=== PATIENT | female | born 1950 | race Caucasian/White ===

== ENCOUNTER 2019-06-21 09:54 | Inpatient (IN) | payer MEDICARE, SELFPAY ==
[2019-06-21] VITALS (19 sets, daily range): BP systolic 126–167; BP diastolic 60–92; PULSE 69–116; RESP 13–22; TEMP 36.5–37.7; O2SAT 97–100; BMI 32.4; BMI 33.0
--- NOTE | 2019-06-21 10:27 | EKG12_ITS ---
Test Reason : SOB Blood Pressure : / mmHG Vent. Rate : 092 BPM Atrial Rate : 092 BPM P-R Int : 216 ms QRS Dur : 076 ms QT Int : 372 ms P-R-T Axes : 053 -19 035 degrees QTc Int : 460 ms Sinus rhythm with 1st degree A-V block Nonspecific ST abnormality Abnormal ECG Confirmed by LÓPEZ ORELLANA, EVY ([id number]), technical writer and editor FAVIAN BHATTI ([id number]) on 06/23/2019 11:41:54 AM Referred By: Erika Lane Confirmed By:EVY DAWN MD
[2019-06-21 10:50] LABS: Absolute Lymphocyte Count 1.02 X10^3/uL (0.83-4.51); Absolute Neutrophil Count 3.9 X10^3/uL (2.0-7.7); Basophil# 0.02 X10^3/uL; Basophil% 0.4 % (0-1); Eosinophil# 0.08 X10^3/uL; Eosinophils% 1.4 % (0-5); Hemoglobin 12.6 g/dL (12.0-15.0); Lymphocyte # 1.02 X10^3/ul (4.0); Lymphocyte % 18.3 % (19-41); Mean Corp Hgb Conc 32.3 g/dL (32-36); Mean Corpuscular Hgb 29.6 pg (27.0-32.0); Mean Corpuscular Volume 91.5 fL (81-99); Mean Platelet Vol. 10.5 fl (6.2-12.0); Monocyte# 0.52 X10^3/uL; Monocyte% 9.3 % (0-10); NRBC Flagged by Analyzer 0 % (0-5); Neutrophil # 3.92 X10^3/uL (2.7-7.7); Neutrophil % 70.2 % (47-70); Platelet Count 160 K/mm3 (150-450); RBC Distribution Width CV 13.7 % (11.6-14.6); RBC Distribution Width SD 46.3 fl (35.1-43.9); Red Blood Count 4.26 M/mm3 (4.2-5.4); White Blood Count 5.6 K/mm3 (4.4-11.0)
[2019-06-21 11:09] LABS: Anion Gap 8 (5-15); BUN 16 mg/dL (7-18); BUN/Creat Ratio 12.6 RATIO (10-20); Calcium,Total 8.9 mg/dL (8.5-10.1); Chloride 107 mmol/L (98-107); Creatinine, Serum 1.27 mg/dL (0.55-1.02); EST Glomerular Filtration Rate 44 mL/min (>60); Est Glom Filt Rate - Afr Amer 53 mL/min (>60); Estimated Creatinine Clearance 40.08 ml/min; Glucose 114 mg/dL (74-106); Potassium 3.9 mmol/L (3.5-5.1); Sodium Level 138 mmol/L (136-145)
[2019-06-21 11:10] LABS: D-Dimer Quantitative (DVT/PE) 3.91 FEU/ug/m (0.27-0.49)
--- NOTE | 2019-06-21 11:10 | CT_ITS ---
We are attempting to reach an attending provider to discuss findings. An addendum with communication details will be sent when the communication is complete. STUDY: CTA CHEST REASON FOR EXAM: Female, 68 years old. RADIATION DOSAGE (If Supplied By Facility): CTDIvol = ( 10.25 ) mGy, DLP = ( 374.44 ) mGycm TECHNIQUE: The examination was performed with the intravenous administration of IV Isovue 370 100. Post-processing of the angiographic images was performed, with multiplanar reformation. Individualized dose optimization techniques were used for this CT. COMPARISON: None. FINDINGS: There are filling defects in the main pulmonary arteries bilaterally extending to the upper and lower lobes pulmonary arteries bilaterally. The pulmonary embolism extends to the region of the bifurcation of the main pulmonary arteries. Small filling defects are seen in the peripheral branches of both upper lobes. Normal thoracic aorta and visualized great vessels. There is no demonstrated aortic dissection. Normal heart and pericardium. Normal mediastinum. Normal hilar regions. Normal visualized trachea and bronchi. The lungs are well expanded. There are hazy bilateral groundglass opacities/infiltrates particularly in the lower lungs which may reflect early pulmonary edema. No focal infiltrate is seen. There are no pleural effusions. Normal chest wall structures. There are degenerative changes of thoracic spine. There is increased kyphosis of the thoracic spine. Normal visualized upper abdomen. CT/CTA Chest W/WO Contrast IMPRESSION: 1. Bilateral pulmonary emboli as described above involving the main renal arteries with saddle component. 2. Mild hazy groundglass opacities in the lower lungs which may reflect mild pulmonary edema.. Electronically Signed: Benito Delgado MD at 12:00 EST Tel , Service support ,
[2019-06-21 11:49] LABS: Partial Thromboplast Time 30.2 Seconds (24.1-36.2)
[2019-06-21] MEDS: Heparin Injection (Vial) 5,000 UNIT/ML VIAL 4000 UNIT IV (11:59)
--- NOTE | 2019-06-21 12:10 | ED.VIS.GEN ---
History of Present Illness Chief Complaint: Shortness of Breath Informant: Patient Onset: Days Context: Gradual Onset Timing: Waxes and wanes Current Severity: Mild Maximum Severity: Moderate Narrative: Patient presents with ongoing shortness of breath for the past 2 days. She states she first noted it when she went to check her mail yesterday. She normally can walk to the mailbox and back without difficulty but yesterday became winded. She had a minimal cough but no recent URI symptoms. She denies chest pain. She is a history of hypertension and chronic kidney disease. She denies cardiac or pulmonary history. - Past Medical History (1) Chronic kidney disease Status: Chronic (2) Hypertension Status: Chronic Past Medical History - Allergies and Home Meds Allergies/Adverse Reactions: Allergies bupropion [From Wellbutrin] Adverse Reaction (Verified 06/21/19 09:57) Other venlafaxine [From Effexor] Adverse Reaction (Verified 06/21/19 09:57) Other Primary Care Physician: Sanjuana Cheung MD [Primary Care Provider] - Prior records reviewed: Yes Smoking Status: Never smoker Review of Systems General: Denies: Chills, Fever Eyes: Denies: Visual changes - bilaterally ENT: Denies: Bilateral ear pain Cardiovascular: Denies: Chest pain, Palpitations Respiratory: Reports: Dyspnea, Cough - Minimal cough. Denies: Sputum Gastrointestinal: Denies: Abdominal pain, Nausea, Vomiting, Diarrhea Genitourinary: Denies: Dysuria Musculoskeletal: Denies: Extremity Pain Skin: Denies: Rash Neurological: Denies: Headache Allergy: Denies: Uticaria Physical Exam Vital Signs/Narrative: Vital Signs Temp Pulse Resp BP Pulse Ox 06/21/19 10:49 97.7 F L 102 H 18 97 06/21/19 09:55 97.7 F L 116 H 22 H 167/89 H 100 Inital Vital Signs reviewed: Yes General: Well nourished, Well developed Head: Normocephalic ENT: Moist mucous membranes Neck: Supple Cardiovascular: Tachycardia Respiratory: No distress, CTA bilaterally Abdomen: Soft, Nontender Extremities: Edema - 1+ bilateral lower extremity edema that is symmetric. Skin: Normal color Neurological: Alert, Oriented x3 Psychological: Normal affect Diagnostic/Tx/Re-eval Impressions Chest CTA 06/21/19 11:10 IMPRESSION: 1. Bilateral pulmonary emboli as described above involving the main renal arteries with saddle component. 2. Mild hazy groundglass opacities in the lower lungs which may reflect mild pulmonary edema.. Electronically Signed: Benito Delgado MD at 12:00 EST Tel , Service support , ADDENDUM: 06/21/19 1209 IMPRESSION: 1. Bilateral pulmonary emboli as described above involving the main renal arteries with saddle component. 2. Mild hazy groundglass opacities in the lower lungs which may reflect mild pulmonary edema.. N.B. : The above information has been verbally conveyed by Benito Delgado MD to Dr. Mccracken; [phone], on 06/21/2019 12:02:51 (ET). Electronically Signed: Benito Delgado MD at 12:00 EST Tel , Service support , 06/21/19 11:10 CTA Chest W/WO Contrast [CT] Stat Laboratory Results 06/21/19 06/21/19 06/21/19 10:43 10:43 10:43 WBC 5.6 RBC 4.26 Hgb 12.6 Hct 39.0 MCV 91.5 MCH 29.6 MCHC 32.3 RDW Std Deviation 46.3 H RDW Coeff of Ronald 13.7 Plt Count 160 MPV 10.5 Immature Gran % (Auto) 0.400 Neut % (Auto) 70.2 H Lymph % (Auto) 18.3 L [place] % (Auto) 9.3 Eos % (Auto) 1.4 Baso % (Auto) 0.4 Absolute Neuts (auto) 3.9 Absolute Lymphs (auto) 1.02 Nucleated RBC % 0 APTT D-Dimer Quant (PE/DVT) 3.91 H* Sodium 138 Potassium 3.9 Chloride 107 Carbon Dioxide 23.0 Anion Gap 8 BUN 16 Creatinine 1.27 H Estim Creat Clear Calc 40.08 Est GFR (MDRD) Af Amer 53 L Est GFR (MDRD) Non-Af 44 L BUN/Creatinine Ratio 12.6 Glucose 114 H Calcium 8.9 Troponin I 0.149 H 06/21/19 10:43 WBC RBC Hgb Hct MCV MCH MCHC RDW Std Deviation RDW Coeff of Ronald Plt Count MPV Immature Gran % (Auto) Neut % (Auto) Lymph % (Auto) [place] % (Auto) Eos % (Auto) Baso % (Auto) Absolute Neuts (auto) Absolute Lymphs (auto) Nucleated RBC % APTT 30.2 D-Dimer Quant (PE/DVT) Sodium Potassium Chloride Carbon Dioxide Anion Gap BUN Creatinine Estim Creat Clear Calc Est GFR (MDRD) Af Amer Est GFR (MDRD) Non-Af BUN/Creatinine Ratio Glucose Calcium Troponin I - EKG Initial EKG Interpretation: Sinus Rhythm - Sinus at 92 with first-degree AV block. - Medical Decision Making Upon completion of the patient's CT scan heparin bolus and drip were started. Patient has been updated on her condition. When the radiologist called me I did note to him that the CT report documented clot in the bilateral renal arteries. He states this is a misprint and is post B pulmonary arteries. He will correct this. I spoke with hospitalist regarding admission. Patient's vital signs remained stable, however with the degree of clot burden she will be placed in the ICU. ED Disposition - Plan for ED Patient: Disposition: Acute Care Hospital [facility] Diagnosis: Pulmonary emboli Referrals: Sanjuana Cheung MD [Primary Care Provider] -
[2019-06-21] MEDS: HEPARIN/D5w 25,000 UNITS 25,000 UNITS/250 ML IV.SOLN. 10 UNITS IV (12:17)
--- NOTE | 2019-06-21 12:34 | HP.PCM_ITS ---
Problem List (1) GERD (gastroesophageal reflux disease) Status: Chronic (2) Stage III chronic kidney disease Status: Chronic (3) Hypertension Status: Chronic (4) Pulmonary emboli Status: Acute History of Present Illness Date of Admission: 06/21/19 Chief Complaint: Shortness of breath. The patient is a 68 year old F patient with past medical history as mentioned above presented to the emergency room because of shortness of breath. Her illness started around 2 days ago with shortness of breath, on moderate exertion, relieved by rest, associated with occasional mild cough without sputum production and without other associated symptoms. She noted the shortness of breath since yesterday when she went to check her mailbox. Normally, she is active and walk without any restrictions. She denied chest pain, palpitation, dizziness or lightheadedness. She denied fever or chills. She mentioned that her mother had blood clots in her legs but she is not aware of any family history of congenital blood clotting disorders in her family. She is active at home, doing her daily activities without restrictions. No recent history of surgery or history of cancer. In the emergency department, she was afebrile, tachycardic, blood pressure was not elevated, pulse ox was 97% on room air. Routine blood work was remarkable for creatinine of 1.27, otherwise normal. EKG revealed normal sinus rhythm with first-degree AV block, no acute ischemic changes or cardiac arrhythmias. Troponin was 0.149. CTA chest done and revealed bilateral pulmonary emboli involving main pulmonary arteries with saddle component. She is being admitted for acute bilateral pulmonary emboli/saddle embolism and elevated troponin. Past Medical History Past Medical History (Chronic Problems): Chronic Problems GERD (gastroesophageal reflux disease) (Chronic) Stage III chronic kidney disease (Chronic) Hypertension (Chronic) Allergies bupropion [From Wellbutrin] Adverse Reaction (Verified 06/21/19 09:57) Other venlafaxine [From Effexor] Adverse Reaction (Verified 06/21/19 09:57) Other Home Medications: Ambulatory Orders Medication Instructions Recorded Lansoprazole 15 mg PO DAILY PRN 06/21/19 Lisinopril [Zestril] 10 mg PO DAILY 06/21/19 Surgical History: - - Left-sided oophorectomy for dermoid cyst. 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 Denies: Pleuritic Pain, Sputum production, Wheezing Gastrointestinal: Denies: Abdominal Pain, Constipation, Diarrhea, Nausea, Vomiting Genitourinary: Denies: Dysuria, Frequency, Hematuria Musculoskeletal: Denies: Arm Pain, Back Pain, Foot Pain Skin: Denies: Dryness, Rash Neurological: Denies: Balance problems, Blurred vision, Double vision, Change in Speech, Slurred speech, Confusion, Focal weakness, Headaches, Incoordination Psychiatric: Denies: Anxiety, Depression Endocrine: Denies: Change in Body Habitus, Polydipsia, Polyuria VTE Information - Inpt Only VTE Present on Admission: Yes VTE Mechan Device Prophylaxis: None VTE Pharm Prophylaxis ordered?: No Patient Problems: Active and Suspected Problems Pulmonary emboli (Acute) - Physical Exam Vitals/I&O's: Vital Signs Temp Pulse Resp BP Pulse Ox 97.7 F L 102 H 18 167/89 H 97 06/21/19 10:49 06/21/19 10:49 06/21/19 10:49 06/21/19 09:55 06/21/19 10:49 Oxygen Delivery Method Room Air Weight: 210 lb 1.608 oz Body Mass Index (BMI) 32.4 General: Alert, Oriented x3, Cooperative, No apparent distress HEENT: Atraumatic, PERRLA, EOMI, Normocephalic Oral: Moist Mucosa, No Gingival or Mucosal Lesions/ Ulcerations Neck: Supple, No JVD, Negative Carotid Bruits, Trachea Midline, Thyroid Normal Size and Texture Lungs: Clear to auscultation, No rhonchi, No wheeze, No rales Cardiovascular: Regular rate, Regular Rhythm, Normal S1, Normal S2, No murmurs, PMI Normal, Tachycardic Abdomen: Bowel Sounds Present, Soft, Non Tender, Non-Distended, No Hepato- splenomegaly Extremities: No clubbing, No cyanosis, No edema Skin: No rashes, No breakdown Lymphatic: No Cervical, Supraclavicular, or Inguinal Adenopathy Neurological: Cranial nerves II-XII grossly intact, Motor Exam 5/5 strength throughout Psych/Mental Status: Normal Affect, Appropriate, Alert and oriented to time, place, person, mood and affect Laboratory Results 06/21/19 10:43: WBC 5.6, RBC 4.26, Hgb 12.6, Hct 39.0, MCV 91.5, MCH 29.6, MCHC 32.3, RDW Std Deviation 46.3 H, RDW Coeff of Ronald 13.7, Plt Count 160, MPV 10.5, Immature Gran % (Auto) 0.400, Neut % (Auto) 70.2 H, Lymph % (Auto) 18.3 L, [place] % (Auto) 9.3, Eos % (Auto) 1.4, Baso % (Auto) 0.4, Absolute Neuts (auto) 3.9, Absolute Lymphs (auto) 1.02, Nucleated RBC % 0 06/21/19 10:43: D-Dimer Quant (PE/DVT) 3.91 H* 06/21/19 10:43: Sodium 138, Potassium 3.9, Chloride 107, Carbon Dioxide 23.0, Anion Gap 8, BUN 16, Creatinine 1.27 H, Estim Creat Clear Calc 40.08, Est GFR (MDRD) Af Amer 53 L, Est GFR (MDRD) Non-Af 44 L, BUN/Creatinine Ratio 12.6, Glucose 114 H, Calcium 8.9, Troponin I 0.149 H 06/21/19 10:43: APTT 30.2 Clinical Impression(s) from Imaging Studies Chest CTA 06/21/19 11:10 IMPRESSION: 1. Bilateral pulmonary emboli as described above involving the main renal arteries with saddle component. 2. Mild hazy groundglass opacities in the lower lungs which may reflect mild pulmonary edema.. Electronically Signed: Benito Delgado MD at 12:00 EST Tel , Service support , ADDENDUM: 11/17/19 1209 IMPRESSION: 1. Bilateral pulmonary emboli as described above involving the main renal arteries with saddle component. 2. Mild hazy groundglass opacities in the lower lungs which may reflect mild pulmonary edema.. N.B. : The above information has been verbally conveyed by Benito Delgado MD to Dr. Mccracken; [phone], on 06/21/2019 12:02:51 (ET). Electronically Signed: Benito Delgado MD at 12:00 EST Tel , Service support , ADDENDUM: 06/21/19 1215 Current Medications Heparin Sodium (Porcine) (Heparin Na) 0 unit IV UD PRN; Protocol Heparin Sodium/Dextrose () 25,000 units in 250 mls @ 10 mls/hr IV .Q25H THANG; Protocol Last Admin: 06/21/19 12:17 Dose: 10 ml/hr, 10 mls/hr Documented by: Assessment/Plan All Active Problems Pulmonary emboli (Acute) This is a 68 years old female patient presented to the emergency room because of exertional shortness of breath and she was found to have bilateral pulmonary emboli/saddle embolism involving main pulmonary arteries and she is being admitted for evaluation and treatment. #1 acute bilateral pulmonary emboli/saddle embolism: Involving both main pulmonary arteries. This is unprovoked, no risk factors for PE or DVT. Patient complained of minimal left ankle swelling but no calf pain or swelling. Her mother had a history of blood clots in her legs but no family history of congenital clotting disorders. She has no history of cancer and she is active at home without any restrictions. No recent surgery. Plan: Admit to ICU, critical care monitoring, start IV heparin drip weight-based protocol, hypercoagulable work-up, check pro time and INR, critical care consult, repeat CBC and BMP tomorrow morning. #2 indeterminate troponin/probable non-ST elevation GA: This is likely due to heart strain secondary to massive PEs. Patient denied chest pain, no previous history of CAD. EKG revealed no acute ischemic changes. Troponin is 0.149. Plan: finisher hot strip, serial cardiac enzymes, repeat EKG tomorrow morning, 2D echocardiogram, continue lisinopril, start Lipitor and metoprolol. #3 hypertension: Blood pressure slightly elevated, continue lisinopril, start metoprolol as above, IV hydralazine PRN. #4 GERD: Start Protonix. #5 stage III chronic kidney disease: Unknown baseline kidney function. Admission creatinine is 1.27, seems to be stable at baseline. #6 DVT prophylaxis: She will be on IV heparin drip for anticoagulation. This note was generated with [employer] dictation software. It may contain incorrect words, spelling, and punctuation that were not noted in checking the note before signing. Code Visit Inpatient E&M: 92585 Init Hosp L3
--- NOTE | 2019-06-21 12:54 | NURSING ---
icu 1 ashelfah sofía pe/saddle embolism, elevated trop
--- NOTE | 2019-06-21 13:22 | VDLE_ITS ---
Reason For Study: Pulmonary Embolism RIGHT LEFT GSV is normal. GSV is normal. CFV is compressible, spontaneous, phasic, CFV is compressible, spontaneous, phasic, competent and demonstrates normal competent, and demonstrates normal augmentation. augmentation. FV is compressible, spontaneous, phasic, FV is compressible, spontaneous, phasic, competent and demonstrates normal competent and demonstrates normal augmentation. augmentation. POP V is compressible, spontaneous, phasic, POP V is compressible, spontaneous, phasic, competent and demonstrates normal competent and demonstrates normal augmentation. augmentation. T/P Trunk is compressible. PTV is compressible. PTV is compressible. T/P Trunk is dilated and partially RT PerV is compressible. compressible. Procedure Prox Per V is dilated and partially Exam performed portable in ICU/CCU. compressible. The exam was diagnostic. MID/DISTAL Per V dilated and non A preliminary report was called and/or faxed compressible. to Norma RN & ICU. Interpretation Summary There is no evidence of right lower extremity deep vein thrombosis. Right great saphenous vein appears patent and compressible segmentally. Acute deep venous thrombosis left tibioperoneal trunk and peroneal vein. Patent and compressible left great saphenous vein Ordering Physician: Erika Lane Referring Physician: Sanjuana Cheung Performed By: Mariola Vargas, LEONORCS, RVT
--- NOTE | 2019-06-21 13:22 | ECHOD_ITS ---
Reason For Study: Emboli Procedure This was a 2D Doppler, Color Flow transthoracic echocardiogram. Exam performed portable in patient room. Left Ventricle Normal LV size. Left ventricular systolic function is normal. The estimated ejection fraction is 65 %. Stage 1 diastolic dysfunction. No regional wall motion abnormalities noted. Right Ventricle Normal RV size. Normal systolic function. Atria Normal left atrium. Normal right atrium. Mitral Valve Normal mitral valve. Tricuspid Valve Normal tricuspid valve. Moderate (2+) tricuspid valve insufficiency. Pulmonary artery systolic pressure is 54 mmHg. Aortic Valve Normal aortic valve. Pulmonic Valve Normal pulmonic valve. Great Vessels Normal aortic root. The pulmonary artery is normal size. Normal inferior vena cava. Pericardium/Pleural No pericardial effusion. MMode/2D Measurements & Calculations LVIDd: 3.1 cm IVSd: 1.0 cm Ao root diam: 2.9 cm LVIDs: 1.8 cm LVPWd: 1.0 cm RVDd: 4.2 cm FS: 41.9 % LAV(MOD-bp): 37.2 ml LA A4 area: 17.9 cm2 LA dimension(2D): 3.8 cm LAV(MOD-bp) Indexed: 18.0 ml/m2 LAV(MOD-sp2): 26.2 ml LAV(MOD-sp4): 45.8 ml RA A4 area: 17.2 cm2 Doppler Measurements & Calculations MV E max ruddy: 85.3 cm/sec Lat Peak E' Ruddy: 11.6 cm/sec Med Peak E' Ruddy: 9.7 cm/sec MV A max ruddy: 114.1 cm/sec E/E' lat: 7.3 E/E' med: 8.8 MV E/A: 0.75 Ao V2 max: 122.3 cm/sec LV V1 max: 116.8 cm/sec PA V2 max: 86.7 cm/sec Ao max P.0 mmHg LV V1 max P.5 mmHg TR max ruddy: 346.9 cm/sec TR max P.2 mmHg Interpretation Summary Normal LV size. Left ventricular systolic function is normal. The estimated ejection fraction is 65 %. Stage 1 diastolic dysfunction. Pulmonary artery systolic pressure is 54 mmHg. Moderate (2+) tricuspid valve insufficiency. Ordering Physician: Erika Lane Referring Physician: Sanjuana Cheung Performed By: Ursula Yanez RDCS, RVT
[2019-06-21 13:37] LABS: Prothrombin Time (Protime)PT. 13.2 SECONDS (11.7-14.9)
[2019-06-21] MEDS: 0.9% Normal Saline 1,000 ML 75 ML IV (15:19)
[2019-06-21] MEDS: 0.9% Saline Lock 10 ML Syringe IV (15:19)
[2019-06-21 17:58] LABS: Partial Thromboplast Time 141.4 Seconds (24.1-36.2)
[2019-06-21 18:56] LABS: Partial Thromboplast Time 121.8 Seconds (24.1-36.2)
[2019-06-21] MEDS: Atorvastatin Calcium 40 MG Tablet PO (21:17)
[2019-06-21] MEDS: Metoprolol Tartrate 25 MG Tablet PO (21:17)
[2019-06-22] VITALS (19 sets, daily range): BP systolic 114–150; BP diastolic 60–86; PULSE 63–83; RESP 15–18; TEMP 36.5–37.3; O2SAT 95–100
[2019-06-22 01:00] LABS: Partial Thromboplast Time 59.8 Seconds (24.1-36.2)
--- NOTE | 2019-06-22 05:55 | EKG12_ITS ---
Test Reason : AM EKG Blood Pressure : / mmHG Vent. Rate : 069 BPM Atrial Rate : 069 BPM P-R Int : 234 ms QRS Dur : 070 ms QT Int : 440 ms P-R-T Axes : 053 -27 009 degrees QTc Int : 471 ms Sinus rhythm with 1st degree A-V block Leftward [place] Confirmed by EARL ORELLANA, HARVEY ([id number]), purchasing expeditor DEL MORILLO ([id number]) on 06/24/2019 2:19:24 PM Referred By: Erika Lane Confirmed By:HARVEY ELLIOTT MD
[2019-06-22 06:33] LABS: Absolute Lymphocyte Count 1.27 X10^3/uL (0.83-4.51); Absolute Neutrophil Count 2.2 X10^3/uL (2.0-7.7); Basophil# 0.03 X10^3/uL; Basophil% 0.7 % (0-1); Eosinophil# 0.14 X10^3/uL; Eosinophils% 3.4 % (0-5); Hematocrit 38.4 % (37-47); Hemoglobin 12.3 g/dL (12.0-15.0); Lymphocyte # 1.27 X10^3/ul (4.0); Lymphocyte % 30.9 % (19-41); Mean Corpuscular Hgb 29.7 pg (27.0-32.0); Mean Corpuscular Volume 92.8 fL (81-99); Mean Platelet Vol. 11.5 fl (6.2-12.0); Monocyte# 0.47 X10^3/uL; Monocyte% 11.4 % (0-10); NRBC Flagged by Analyzer 0 % (0-5); Neutrophil # 2.18 X10^3/uL (2.7-7.7); Neutrophil % 53.1 % (47-70); Platelet Count 154 K/mm3 (150-450); RBC Distribution Width CV 13.8 % (11.6-14.6); RBC Distribution Width SD 47.6 fl (35.1-43.9); Red Blood Count 4.14 M/mm3 (4.2-5.4); White Blood Count 4.1 K/mm3 (4.4-11.0)
--- NOTE | 2019-06-22 06:34 | CON.PCM_ITS ---
Reason for Consult Date of Consultation: 06/22/19 Reason for Consultation: Submassive PE History of Present Illness: The patient is a 68-year-old female, with a history as outlined below, who presented to the emergency department on June 21 with complaints of shortness of breath, primarily with exertion. The patient reports that beginning on Saturday, she noticed that she was short of breath with ambulation to her mailbox, which was out of characteristic for her. She is not normally sh ort of breath at her baseline. The patient is an active individual at her baseline. She is a lifelong non-smoker. She denies a history of DVTs or PEs. The patient has never been diagnosed with a hypercoagulable state. She is up-to-date on her cancer screening. She does report that her mother had a history of lower extremity DVTs. The patient denies a history of recent prolonged travel. She does regularly take short road trips in her car. She denies any recent airline travel. On presentation to the emergency department, the patient was noted to be afebrile and tachycardic. She was, nonetheless, saturating 100% on room air. Initial laboratory evaluation revealed no evidence of a leukocytosis. Coagulation profile was within normal limits. D-dimer was elevated to 3.9. Chemistry profile revealed a creatinine of 1.27. Initial troponin was elevated at 0.149. A CTA chest was obtained which did reveal bilateral pulmonary emboli. The patient was subsequently started on a continuous heparin infusion and admitted to the medical intensive care unit for close overnight observation. Past Medical History Past Medical History (Chronic Problems): Chronic Problems GERD (gastroesophageal reflux disease) (Chronic) Stage III chronic kidney disease (Chronic) Hypertension (Chronic) Allergies bupropion [From Wellbutrin] Adverse Reaction (Verified 06/21/19 09:57) Other venlafaxine [From Effexor] Adverse Reaction (Verified 06/21/19 09:57) Other Home Medications: Ambulatory Orders Medication Instructions Recorded Lansoprazole 15 mg PO DAILY PRN 06/21/19 Lisinopril [Zestril] 10 mg PO DAILY 06/21/19 Surgical History: - - Left-sided oophorectomy for dermoid cyst. 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 Denies: Chills, Fever Eyes: Denies: Blurred vision, Double vision HEENT: Denies: Head Aches, Sinus Congestion, Sinus Drainage Cardiovascular: Denies: Chest Pain Respiratory: Reports: Cough, Shortness of Breath. Denies: Sputum production Gastrointestinal: Denies: Abdominal Pain, Nausea, Vomiting Genitourinary: Denies: Dysuria Musculoskeletal: Denies: Joint Pain, Joint Tenderness Skin: Denies: Rash, Wounds Neurological: Denies: Numbness, Tingling, Focal weakness Psychiatric: Denies: Anxiety, Depression, Homicidal Ideations, Suicidal Ideations Hematologic/ Lymphatic: Denies: Hx of blood clot Patient Problems: Active and Suspected Problems Pulmonary emboli (Acute) - Physical Exam Vitals/I&O's: Vital Signs Temp Pulse Resp BP Pulse Ox 98.9 F 74 15 135/72 H 100 06/22/19 04:00 06/22/19 05:38 06/22/19 05:00 06/22/19 05:00 06/22/19 05:00 Oxygen Delivery Method Room Air Weight: 210 lb 12.191 oz Body Mass Index (BMI) 33.0 Intake and Output for Last 24 Hours 06/20/19 06/21/19 06/22/19 23:59 23:59 23:59 Intake Total 330.94 / 430.94 1139.78 / 1139.78 Balance 330.94 / 430.94 1139.78 / 1139.78 General: Alert, Oriented x3, Cooperative, No apparent distress, - - Sitting in bedside recliner. HEENT: Atraumatic, PERRLA, Normocephalic Oral: Moist Mucosa, No Gingival or Mucosal Lesions/ Ulcerations Neck: Supple, No Nodes, Trachea Midline Lungs: Normal air movement, No rhonchi, No wheeze, No rales Cardiovascular: Regular rate, Regular Rhythm, Normal S1, Normal S2, No murmurs Abdomen: Bowel Sounds Present, Soft, Non Tender, Non-Distended Extremities: No clubbing, No cyanosis, No edema Skin: No rashes, No breakdown Musculoskeletal: No Tenderness to Palpation of Joints or Extremities Lymphatic: No Cervical, Supraclavicular, or Inguinal Adenopathy Neurological: Cranial nerves II-XII grossly intact, Neuro grossly intact Psych/Mental Status: Alert and oriented to time, place, person, mood and affect Labs (Last 48 Hours) 06/21/19 06/21/19 06/21/19 10:43 10:43 10:43 WBC 5.6 RBC 4.26 Hgb 12.6 Hct 39.0 MCV 91.5 MCH 29.6 MCHC 32.3 RDW Std Deviation 46.3 H RDW Coeff of Ronald 13.7 Plt Count 160 MPV 10.5 Immature Gran % (Auto) 0.400 Neut % (Auto) 70.2 H Lymph % (Auto) 18.3 L [place] % (Auto) 9.3 Eos % (Auto) 1.4 Baso % (Auto) 0.4 Absolute Neuts (auto) 3.9 Absolute Lymphs (auto) 1.02 Nucleated RBC % 0 PT INR APTT D-Dimer Quant (PE/DVT) 3.91 H* Protein C Antigen Prot C Funct Activity Functional Protein S Free Protein S Total Protein S Func Antithrombin III Factor V Leiden Mutat Sodium 138 Potassium 3.9 Chloride 107 Carbon Dioxide 23.0 Anion Gap 8 BUN 16 Creatinine 1.27 H Estim Creat Clear Calc 40.08 Est GFR (MDRD) Af Amer 53 L Est GFR (MDRD) Non-Af 44 L BUN/Creatinine Ratio 12.6 Glucose 114 H Calcium 8.9 Troponin I 0.149 H Anti-Cardiolipin IgG Ab Anti-Cardiolipin IgM Ab 06/21/19 06/21/19 06/21/19 10:43 10:43 14:00 WBC RBC Hgb Hct MCV MCH MCHC RDW Std Deviation RDW Coeff of Ronald Plt Count MPV Immature Gran % (Auto) Neut % (Auto) Lymph % (Auto) [place] % (Auto) Eos % (Auto) Baso % (Auto) Absolute Neuts (auto) Absolute Lymphs (auto) Nucleated RBC % PT 13.2 INR 1.0 APTT 30.2 D-Dimer Quant (PE/DVT) Protein C Antigen Pending Prot C Funct Activity Pending Functional Protein S Pending Free Protein S Pending Total Protein S Pending Func Antithrombin III Pending Factor V Leiden Mutat Pending Sodium Potassium Chloride Carbon Dioxide Anion Gap BUN Creatinine Estim Creat Clear Calc Est GFR (MDRD) Af Amer Est GFR (MDRD) Non-Af BUN/Creatinine Ratio Glucose Calcium Troponin I Anti-Cardiolipin IgG Ab Pending Anti-Cardiolipin IgM Ab Pending 06/21/19 06/21/19 06/21/19 14:30 17:18 17:18 WBC RBC Hgb Hct MCV MCH MCHC RDW Std Deviation RDW Coeff of Ronald Plt Count MPV Immature Gran % (Auto) Neut % (Auto) Lymph % (Auto) [place] % (Auto) Eos % (Auto) Baso % (Auto) Absolute Neuts (auto) Absolute Lymphs (auto) Nucleated RBC % PT INR APTT 141.4 H* D-Dimer Quant (PE/DVT) Protein C Antigen Prot C Funct Activity Functional Protein S Free Protein S Total Protein S Func Antithrombin III Factor V Leiden Mutat Sodium Potassium Chloride Carbon Dioxide Anion Gap BUN Creatinine Estim Creat Clear Calc Est GFR (MDRD) Af Amer Est GFR (MDRD) Non-Af BUN/Creatinine Ratio Glucose Calcium Troponin I 0.140 H 0.122 H Anti-Cardiolipin IgG Ab Anti-Cardiolipin IgM Ab 06/21/19 06/22/19 06/22/19 18:13 00:30 06:20 WBC 4.1 L RBC 4.14 L Hgb 12.3 Hct 38.4 MCV 92.8 MCH 29.7 MCHC 32.0 RDW Std Deviation 47.6 H RDW Coeff of Ronald 13.8 Plt Count 154 MPV 11.5 Immature Gran % (Auto) 0.500 Neut % (Auto) 53.1 Lymph % (Auto) 30.9 [place] % (Auto) 11.4 H Eos % (Auto) 3.4 Baso % (Auto) 0.7 Absolute Neuts (auto) 2.2 Absolute Lymphs (auto) 1.27 Nucleated RBC % 0 PT INR APTT 121.8 H* 59.8 H D-Dimer Quant (PE/DVT) Protein C Antigen Prot C Funct Activity Functional Protein S Free Protein S Total Protein S Func Antithrombin III Factor V Leiden Mutat Sodium Potassium Chloride Carbon Dioxide Anion Gap BUN Creatinine Estim Creat Clear Calc Est GFR (MDRD) Af Amer Est GFR (MDRD) Non-Af BUN/Creatinine Ratio Glucose Calcium Troponin I Anti-Cardiolipin IgG Ab Anti-Cardiolipin IgM Ab 06/22/19 06/22/19 06:20 06:20 WBC RBC Hgb Hct MCV MCH MCHC RDW Std Deviation RDW Coeff of Ronald Plt Count MPV Immature Gran % (Auto) Neut % (Auto) Lymph % (Auto) [place] % (Auto) Eos % (Auto) Baso % (Auto) Absolute Neuts (auto) Absolute Lymphs (auto) Nucleated RBC % PT INR APTT Pending D-Dimer Quant (PE/DVT) Protein C Antigen Prot C Funct Activity Functional Protein S Free Protein S Total Protein S Func Antithrombin III Factor V Leiden Mutat Sodium Pending Potassium Pending Chloride Pending Carbon Dioxide Pending Anion Gap Pending BUN Pending Creatinine Pending Estim Creat Clear Calc Est GFR (MDRD) Af Amer Pending Est GFR (MDRD) Non-Af Pending BUN/Creatinine Ratio Pending Glucose Pending Calcium Pending Troponin I Anti-Cardiolipin IgG Ab Anti-Cardiolipin IgM Ab Clinical Impression(s) from Imaging Studies Chest CTA 06/21/19 11:10 IMPRESSION: 1. Bilateral pulmonary emboli as described above involving the main renal arteries with saddle component. 2. Mild hazy groundglass opacities in the lower lungs which may reflect mild pulmonary edema.. Electronically Signed: Benito Delgado MD at 12:00 EST Tel , Service support , ADDENDUM: 06/21/19 1209 IMPRESSION: 1. Bilateral pulmonary emboli as described above involving the main renal arteries with saddle component. 2. Mild hazy groundglass opacities in the lower lungs which may reflect mild pulmonary edema.. N.B. : The above information has been verbally conveyed by Benito Delgado MD to Dr. Mccracken; [phone], on 06/21/2019 12:02:51 (ET). Electronically Signed: Benito Delgado MD at 12:00 EST Tel , Service support , ADDENDUM: 06/21/19 1216 Assessment/Plan Active and Suspected Problems Pulmonary emboli (Acute) RECOMMENDATIONS: 1. Transition from continuous heparin infusion to Eliquis versus Xarelto, based upon insurance coverage. 2. 2D echocardiogram is currently pending. 3. Perform walking oximetry study prior to consideration for discharge home. 4. Outpatient pulmonary follow-up is recommended within 2 weeks of discharge. 5. The patient is medically stable for transfer out of the intensive care unit. IMPRESSIONS: 1. Unprovoked submassive pulmonary embolism The patient presented to the hospital with shortness of breath and was subsequently found to have unprovoked bilateral pulmonary emboli. She is currently on a continuous heparin infusion, which from my perspective, can be transition to either Eliquis or Xarelto, depending on the patient's insurance coverage. Echocardiogram is currently pending. Perform walking oximetry study prior to consideration for discharge home. Outpatient pulmonary follow-up within 2 weeks is recommended. 2. Indeterminate troponin elevation Likely secondary to submassive pulmonary embolism noted on presentation. Echocardiogram is pending. 3. Hypertension/GERD Complicates care, management, recovery and prognosis. Okay to continue home medications as ordered. This note was generated with [email or web address] dictation software. It may contain incorrect words, spelling, and punctuation that were not noted in checking the note before signing. Code Visit Inpatient E&M: 21995 Init Hosp L3
[2019-06-22 06:46] LABS: Anion Gap 6 (5-15); BUN 12 mg/dL (7-18); BUN/Creat Ratio 11.5 RATIO (10-20); Calcium,Total 8.3 mg/dL (8.5-10.1); Chloride 113 mmol/L (98-107); Creatinine, Serum 1.04 mg/dL (0.55-1.02); EST Glomerular Filtration Rate 56 mL/min (>60); Est Glom Filt Rate - Afr Amer 67 mL/min (>60); Estimated Creatinine Clearance 48.95 ml/min; Glucose 90 mg/dL (74-106); Potassium 3.8 mmol/L (3.5-5.1); Sodium Level 144 mmol/L (136-145)
[2019-06-22 07:12] LABS: Partial Thromboplast Time 47.6 Seconds (24.1-36.2)
--- NOTE | 2019-06-22 07:51 | PN_ITS ---
Patient Problems: Active and Suspected Problems Pulmonary emboli (Acute) Subjective: Follow-up bilateral pulmonary embolism Patient is a 68-year-old lady who presented to the emergency department with shortness of breath imaging studies obtained on admission demonstrated bilateral pulmonary embolism/saddle embolism involving the main pulmonary arteries admitted to the intensive care unit started on heparin drip Objective: GENERAL: cooperative HEENT: Atraumatic; EYES; Anicteric, Normal Conjunctiva NECK; supple, normal thyroid, RESPIRATORY: Diminished to auscultation CARDIOVASCULAR: Regular S1 S2, GI: soft, normoactive bowel sounds, : No Renal angle tenderness; EXTREMITIES: No edema, no clubbing, MUSCULOSKELETAL: no muscle waisting NEURO: Awake; no lateralizing signs. SKIN: No Rash PSYCH; Flat affect Vitals/I&O's: Vital Signs Temp Pulse Resp BP Pulse Ox 98.9 F 79 16 150/86 H 100 06/22/19 04:00 06/22/19 07:00 06/22/19 07:00 06/22/19 07:00 06/22/19 07:00 Oxygen Delivery Method Room Air Weight: 94.9 kg Body Mass Index (BMI) 33.0 Intake and Output for Last 24 Hours 06/20/19 06/21/19 06/22/19 23:59 23:59 23:59 Intake Total 330.94 / 430.94 1239.78 / 1239.78 Output Total 400 / 400 Balance 330.94 / 430.94 839.78 / 839.78 Laboratory Results 06/21/19 10:43: WBC 5.6, RBC 4.26, Hgb 12.6, Hct 39.0, MCV 91.5, MCH 29.6, MCHC 32.3, RDW Std Deviation 46.3 H, RDW Coeff of Ronald 13.7, Plt Count 160, MPV 10.5, Immature Gran % (Auto) 0.400, Neut % (Auto) 70.2 H, Lymph % (Auto) 18.3 L, [place] % (Auto) 9.3, Eos % (Auto) 1.4, Baso % (Auto) 0.4, Absolute Neuts (auto) 3.9, Absolute Lymphs (auto) 1.02, Nucleated RBC % 0 06/21/19 10:43: D-Dimer Quant (PE/DVT) 3.91 H* 06/21/19 10:43: Sodium 138, Potassium 3.9, Chloride 107, Carbon Dioxide 23.0, Anion Gap 8, BUN 16, Creatinine 1.27 H, Estim Creat Clear Calc 40.08, Est GFR (MDRD) Af Amer 53 L, Est GFR (MDRD) Non-Af 44 L, BUN/Creatinine Ratio 12.6, Glucose 114 H, Calcium 8.9, Troponin I 0.149 H 06/21/19 10:43: APTT 30.2 06/21/19 10:43: PT 13.2, INR 1.0 06/21/19 14:00: Protein C Antigen Pending, Prot C Funct Activity Pending, Functional Protein S Pending, Free Protein S Pending, Total Protein S Pending, Func Antithrombin III Pending, Factor V Leiden Mutat Pending, Anti-Cardiolipin IgG Ab Pending, Anti-Cardiolipin IgM Ab Pending 06/21/19 14:30: Troponin I 0.140 H 06/21/19 17:18: APTT 141.4 H* 06/21/19 17:18: Troponin I 0.122 H 06/21/19 18:13: APTT 121.8 H* 06/22/19 00:30: APTT 59.8 H 06/22/19 06:20: WBC 4.1 L, RBC 4.14 L, Hgb 12.3, Hct 38.4, MCV 92.8, MCH 29.7, MCHC 32.0, RDW Std Deviation 47.6 H, RDW Coeff of Ronald 13.8, Plt Count 154, MPV 11.5, Immature Gran % (Auto) 0.500, Neut % (Auto) 53.1, Lymph % (Auto) 30.9, [place] % (Auto) 11.4 H, Eos % (Auto) 3.4, Baso % (Auto) 0.7, Absolute Neuts (auto) 2.2, Absolute Lymphs (auto) 1.27, Nucleated RBC % 0 06/22/19 06:20: Sodium 144, Potassium 3.8, Chloride 113 H, Carbon Dioxide 25.0, Anion Gap 6, BUN 12, Creatinine 1.04 H, Estim Creat Clear Calc 48.95, Est GFR (MDRD) Af Amer 67, Est GFR (MDRD) Non-Af 56 L, BUN/Creatinine Ratio 11.5, Glucose 90, Calcium 8.3 L 06/22/19 06:20: APTT 47.6 H Current Medications Acetaminophen (Tylenol) 650 mg PO Q6H PRN PRN PRN Reason: Pain Score 1-3/Temp > 100.7 F Atorvastatin Calcium (Lipitor) 40 mg PO QHS [facility] Last Admin: 06/21/19 21:17 Dose: 40 mg Documented by: Heparin Sodium (Porcine) (Heparin Na) 0 unit IV UD PRN; Protocol Hydralazine HCl (Apresoline Iv) 10 mg IV Q8H PRN PRN PRN Reason: for SBP>160 Heparin Sodium/Dextrose () 25,000 units in 250 mls @ 10 mls/hr IV .Q25H [facility]; Protocol Last Titration: 06/22/19 05:39 Dose: 7 ml/hr, 7 mls/hr Documented by: Lisinopril (Zestril) 10 mg PO DAILY [facility] Metoprolol Tartrate (Lopressor (Beta Garrett)) 25 mg PO BID [facility] Last Admin: 06/21/19 21:17 Dose: 25 mg Documented by: Ondansetron HCl (Zofran) 4 mg IV Q8H PRN PRN PRN Reason: NAUSEA/VOMITING Pantoprazole Sodium (Protonix) 40 mg PO DAILY [facility] Sodium Chloride () 10 - 40 ml IV UD PRN PRN Reason: SALINE FLUSH Last Admin: 06/21/19 15:19 Dose: 10 ml Documented by: STROKE Vital Signs/Narrative: Vital Signs Temp Pulse Resp BP Pulse Ox 06/22/19 07:00 79 16 150/86 H 100 06/22/19 06:00 65 15 119/67 98 06/22/19 05:38 74 06/22/19 05:00 72 15 135/72 H 100 06/22/19 04:00 98.9 F 70 16 129/64 H 98 Medical Necessity - Tobacco Use Smoking Status: Never smoker Assessment/Plan All Active Problems Pulmonary emboli (Acute) Patient is a 68-year-old lady who presented to the emergency department with shortness of breath imaging studies obtained on admission demonstrated bilateral pulmonary embolism/saddle embolism involving the main pulmonary arteries admitted to the intensive care unit started on heparin drip 1. Acute bilateral pulmonary embolism/saddle pulmonary embolism involving both main pulmonary arteries ~ unprovoked. Patient was started on heparin on admission. She is up-to-date with her cancer screening. With patient being unprovoked she would need to be on the coagulation indefinitely regardless of the results of the hypercoagulable state study 2. Elevated troponin ~secondary to non-STEMI type II as a result of massive PE 2D echo ordered for subsequent evaluation 3. Hypertension ~ blood pressure controlled, home medications continued with dose adjustment as needed 4. GERD ~patient is on PPI 5. Acute renal insufficiency ~improved with rehydration Code Visit Inpatient E&M: 55608 Subs Hosp L2
--- NOTE | 2019-06-22 09:51 | CASEMGMT ---
RN CM Assessment Presentation: Juan PE Intro role of CM and purpose of RN CM assessment to patient in room. Demographics, PCP and Pharmacy verified. Pt is awake, alert and able to participate in assessment. Per Dr. More, anticipate pt will need Xarelto or Eliquis based on her insurance coverage for prescriptions. Website unclear with prescriptions. Attempted to call pharmacy line listed on her insurance card: was transferred to different rep, none of which could give me the correct information. Will request script be faxed to pharmacy for recommended medication and coverage can be checked. PCP: Dr. Cheung Specialists: Dr. More Preferred Pharmacy: [facility]. Insurance: [address] [facility] Prescription Benefit: yes LNOK: Sister Nini Shook Living Arrangements: Lives independently. Pt denies any care needs at home. Plans to return home on dc. Transportation: Drives DME: denies any DME use HHC: none Patient DC goals: Home on dc DC PLAN: Home. Sunny SMALL RN ACM
[2019-06-22] MEDS: Pantoprazole Sodium 40 MG Tablet PO (10:26)
[2019-06-22] MEDS: Metoprolol Tartrate 25 MG Tablet PO ×2 (10:26→21:00)
[2019-06-22] MEDS: Lisinopril 10 MG Tablet PO (10:26)
[2019-06-22] MEDS: APIXABAN 5 MG TABLET 10 MG PO (16:14)
[2019-06-22] MEDS: Atorvastatin Calcium 40 MG Tablet PO (21:00)
[2019-06-23 02:47] VITALS: BP 111/53; PULSE 74; RESP 16; TEMP 36.8; O2SAT 97
[2019-06-23 02:55] VITALS: PULSE 66
[2019-06-23 07:01] VITALS: O2SAT 98
[2019-06-23 07:05] VITALS: PULSE 64
[2019-06-23 07:43] VITALS: PULSE 70
[2019-06-23] MEDS: APIXABAN 5 MG TABLET 10 MG PO (07:43)
[2019-06-23] MEDS: Lisinopril 10 MG Tablet PO (07:43)
[2019-06-23] MEDS: Metoprolol Tartrate 25 MG Tablet PO (07:43)
[2019-06-23] MEDS: Pantoprazole Sodium 40 MG Tablet PO (07:43)
[2019-06-23 07:45] VITALS: BP 128/71; PULSE 70; RESP 16; TEMP 36.8; O2SAT 100
--- NOTE | 2019-06-23 09:20 | PN_ITS ---
Patient Problems: Active and Suspected Problems Pulmonary emboli (Acute) Subjective: The patient was seen and examined at the bedside this morning. Events from the last 24 hours have been reviewed. The patient is currently afebrile, hemodynamically stable and maintaining appropriate oxygen saturations on room air. The patient was transition from a continuous heparin infusion to Eliquis yesterday and has not experienced any adverse reactions or bleeding complications. She denies any shortness of breath or chest pain. Objective: The patient's most recent lab work, culture data and imaging studies have all been personally reviewed. Surface echocardiogram revealed normal LV size and function with an ejection fraction of 65% and stage I diastolic dysfunction. The RV was noted to be normal in size and function. Pulmonary artery systolic pressure was estimated to be 54 mmHg. - Physical Exam Vitals/I&O's: Vital Signs Temp Pulse Resp BP Pulse Ox 98.3 F 70 16 128/71 H 100 06/23/19 07:45 06/23/19 07:45 06/23/19 07:45 06/23/19 07:45 06/23/19 07:45 Oxygen Delivery Method Room Air Weight: 209 lb 3.499 oz Body Mass Index (BMI) 33.0 Intake and Output for Last 24 Hours 06/21/19 06/22/19 06/23/19 23:59 23:59 23:59 Intake Total 330.94 / 430.94 2162.14 / 2162.14 480 / 480 Output Total 400 / 400 Balance 330.94 / 430.94 1762.14 / 1762.14 480 / 480 General: Alert, Oriented x3, Cooperative, No apparent distress HEENT: Atraumatic, PERRLA, Normocephalic Oral: Moist Mucosa, No Gingival or Mucosal Lesions/ Ulcerations Neck: Supple, No Nodes, Trachea Midline Lungs: Normal air movement, No rhonchi, No wheeze, No rales Cardiovascular: Regular rate, Regular Rhythm, Normal S1, Normal S2, No murmurs Abdomen: Bowel Sounds Present, Soft, Non Tender Extremities: No clubbing, No cyanosis, No edema Skin: No breakdown Musculoskeletal: No Tenderness to Palpation of Joints or Extremities, No Muscle Wasting Lymphatic: No Cervical, Supraclavicular, or Inguinal Adenopathy Neurological: Cranial nerves II-XII grossly intact, Neuro grossly intact Psych/Mental Status: Alert and oriented to time, place, person, mood and affect Labs (Last 48 Hours) 06/21/19 06/21/19 06/21/19 10:43 10:43 10:43 WBC 5.6 RBC 4.26 Hgb 12.6 Hct 39.0 MCV 91.5 MCH 29.6 MCHC 32.3 RDW Std Deviation 46.3 H RDW Coeff of Ronald 13.7 Plt Count 160 MPV 10.5 Immature Gran % (Auto) 0.400 Neut % (Auto) 70.2 H Lymph % (Auto) 18.3 L Florence % (Auto) 9.3 Eos % (Auto) 1.4 Baso % (Auto) 0.4 Absolute Neuts (auto) 3.9 Absolute Lymphs (auto) 1.02 Nucleated RBC % 0 PT INR APTT D-Dimer Quant (PE/DVT) 3.91 H* Protein C Antigen Prot C Funct Activity Functional Protein S Free Protein S Total Protein S Func Antithrombin III Factor V Leiden Mutat Sodium 138 Potassium 3.9 Chloride 107 Carbon Dioxide 23.0 Anion Gap 8 BUN 16 Creatinine 1.27 H Estim Creat Clear Calc 40.08 Est GFR (MDRD) Af Amer 53 L Est GFR (MDRD) Non-Af 44 L BUN/Creatinine Ratio 12.6 Glucose 114 H Calcium 8.9 Troponin I 0.149 H Anti-Cardiolipin IgG Ab Anti-Cardiolipin IgM Ab 06/21/19 06/21/19 06/21/19 10:43 10:43 14:00 WBC RBC Hgb Hct MCV MCH MCHC RDW Std Deviation RDW Coeff of Ronald Plt Count MPV Immature Gran % (Auto) Neut % (Auto) Lymph % (Auto) Florence % (Auto) Eos % (Auto) Baso % (Auto) Absolute Neuts (auto) Absolute Lymphs (auto) Nucleated RBC % PT 13.2 INR 1.0 APTT 30.2 D-Dimer Quant (PE/DVT) Protein C Antigen Pending Prot C Funct Activity Pending Functional Protein S Pending Free Protein S Pending Total Protein S Pending Func Antithrombin III Pending Factor V Leiden Mutat Pending Sodium Potassium Chloride Carbon Dioxide Anion Gap BUN Creatinine Estim Creat Clear Calc Est GFR (MDRD) Af Amer Est GFR (MDRD) Non-Af BUN/Creatinine Ratio Glucose Calcium Troponin I Anti-Cardiolipin IgG Ab Pending Anti-Cardiolipin IgM Ab Pending 06/21/19 06/21/19 06/21/19 14:30 17:18 17:18 WBC RBC Hgb Hct MCV MCH MCHC RDW Std Deviation RDW Coeff of Ronald Plt Count MPV Immature Gran % (Auto) Neut % (Auto) Lymph % (Auto) Florence % (Auto) Eos % (Auto) Baso % (Auto) Absolute Neuts (auto) Absolute Lymphs (auto) Nucleated RBC % PT INR APTT 141.4 H* D-Dimer Quant (PE/DVT) Protein C Antigen Prot C Funct Activity Functional Protein S Free Protein S Total Protein S Func Antithrombin III Factor V Leiden Mutat Sodium Potassium Chloride Carbon Dioxide Anion Gap BUN Creatinine Estim Creat Clear Calc Est GFR (MDRD) Af Amer Est GFR (MDRD) Non-Af BUN/Creatinine Ratio Glucose Calcium Troponin I 0.140 H 0.122 H Anti-Cardiolipin IgG Ab Anti-Cardiolipin IgM Ab 06/21/19 06/22/19 06/22/19 18:13 00:30 06:20 WBC 4.1 L RBC 4.14 L Hgb 12.3 Hct 38.4 MCV 92.8 MCH 29.7 MCHC 32.0 RDW Std Deviation 47.6 H RDW Coeff of Ronald 13.8 Plt Count 154 MPV 11.5 Immature Gran % (Auto) 0.500 Neut % (Auto) 53.1 Lymph % (Auto) 30.9 Florence % (Auto) 11.4 H Eos % (Auto) 3.4 Baso % (Auto) 0.7 Absolute Neuts (auto) 2.2 Absolute Lymphs (auto) 1.27 Nucleated RBC % 0 PT INR APTT 121.8 H* 59.8 H D-Dimer Quant (PE/DVT) Protein C Antigen Prot C Funct Activity Functional Protein S Free Protein S Total Protein S Func Antithrombin III Factor V Leiden Mutat Sodium Potassium Chloride Carbon Dioxide Anion Gap BUN Creatinine Estim Creat Clear Calc Est GFR (MDRD) Af Amer Est GFR (MDRD) Non-Af BUN/Creatinine Ratio Glucose Calcium Troponin I Anti-Cardiolipin IgG Ab Anti-Cardiolipin IgM Ab 06/22/19 06/22/19 06:20 06:20 WBC RBC Hgb Hct MCV MCH MCHC RDW Std Deviation RDW Coeff of Ronald Plt Count MPV Immature Gran % (Auto) Neut % (Auto) Lymph % (Auto) Florence % (Auto) Eos % (Auto) Baso % (Auto) Absolute Neuts (auto) Absolute Lymphs (auto) Nucleated RBC % PT INR APTT 47.6 H D-Dimer Quant (PE/DVT) Protein C Antigen Prot C Funct Activity Functional Protein S Free Protein S Total Protein S Func Antithrombin III Factor V Leiden Mutat Sodium 144 Potassium 3.8 Chloride 113 H Carbon Dioxide 25.0 Anion Gap 6 BUN 12 Creatinine 1.04 H Estim Creat Clear Calc 48.95 Est GFR (MDRD) Af Amer 67 Est GFR (MDRD) Non-Af 56 L BUN/Creatinine Ratio 11.5 Glucose 90 Calcium 8.3 L Troponin I Anti-Cardiolipin IgG Ab Anti-Cardiolipin IgM Ab Clinical Impression(s) from Imaging Studies Chest CTA 06/21/19 11:10 IMPRESSION: 1. Bilateral pulmonary emboli as described above involving the main renal arteries with saddle component. 2. Mild hazy groundglass opacities in the lower lungs which may reflect mild pulmonary edema.. Electronically Signed: Benito Delgado MD at 12:00 EST Tel , Service support , ADDENDUM: 06/21/19 1209 IMPRESSION: 1. Bilateral pulmonary emboli as described above involving the main renal arteries with saddle component. 2. Mild hazy groundglass opacities in the lower lungs which may reflect mild pulmonary edema.. N.B. : The above information has been verbally conveyed by Benito Delgado MD to Dr. Mccracken; [phone], on 06/21/2019 12:02:51 (ET). Electronically Signed: Benito Delgado MD at 12:00 EST Tel , Service support , ADDENDUM: 06/21/19 1216 Current Medications Acetaminophen (Tylenol) 650 mg PO Q6H PRN PRN PRN Reason: Pain Score 1-3/Temp > 100.7 F Apixaban (Eliquis) 10 mg PO BID [facility] Last Admin: 06/23/19 07:43 Dose: 10 mg Documented by: Atorvastatin Calcium (Lipitor) 40 mg PO QHS [facility] Last Admin: 06/22/19 21:00 Dose: 40 mg Documented by: Heparin Sodium (Porcine) (Heparin Na) 0 unit IV UD PRN; Protocol Hydralazine HCl (Apresoline Iv) 10 mg IV Q8H PRN PRN PRN Reason: for SBP>160 Lisinopril (Zestril) 10 mg PO DAILY [facility] Last Admin: 06/23/19 07:43 Dose: 10 mg Documented by: Metoprolol Tartrate (Lopressor (Beta Garrett)) 25 mg PO BID [facility] Last Admin: 06/23/19 07:43 Dose: 25 mg Documented by: Ondansetron HCl (Zofran) 4 mg IV Q8H PRN PRN PRN Reason: NAUSEA/VOMITING Pantoprazole Sodium (Protonix) 40 mg PO DAILY [facility] Last Admin: 06/23/19 07:43 Dose: 40 mg Documented by: Sodium Chloride () 10 - 40 ml IV UD PRN PRN Reason: SALINE FLUSH Last Admin: 06/21/19 15:19 Dose: 10 ml Documented by: Medical Necessity - Tobacco Use Smoking Status: Never smoker Assessment/Plan All Active Problems Pulmonary emboli (Acute) RECOMMENDATIONS: 1. Continue Eliquis upon discharge. 2. Perform walking oximetry prior to DC home. 3. Outpatient pulmonary follow-up within 2 weeks. IMPRESSIONS: 1. Unprovoked submassive pulmonary embolism The patient presented to the hospital with shortness of breath and was subsequently found to have unprovoked bilateral pulmonary emboli. She was initially treated with a continuous heparin infusion, which was then transition to Eliquis. Subsequent echocardiogram did reveal some pulmonary hypertension, but there was no RV dysfunction. Recommend continuing Eliquis upon discharge. The patient should follow-up in the pulmonary medicine clinic within 2 weeks. 2. Indeterminate troponin elevation Likely secondary to submassive pulmonary embolism noted on presentation. Echocardiogram did reveal some pulmonary hypertension but no RV dysfunction was noted. 3. Hypertension/GERD Complicates care, management, recovery and prognosis. Okay to continue home medications as ordered. This note was generated with Pilar dictation software. It may contain incorrect words, spelling, and punctuation that were not noted in checking the note before signing. Code Visit Inpatient E&M: 78489 Subs Hosp L2
--- NOTE | 2019-06-23 09:42 | DCINST_ITS ---
- Discharge Diagnoses Current Active Problems: Current Active and Chronic Problems GERD (gastroesophageal reflux disease) (Chronic) Stage III chronic kidney disease (Chronic) Hypertension (Chronic) Pulmonary emboli (Acute) You will use the following diet at home:: No restrictions Discharge Activity: Return to Normal Activity Call your doctor if you observe: Shortness of breath, Fainting spells, Chest pain Allergies/Adverse Reactions: Allergies bupropion [From Wellbutrin] Adverse Reaction (Verified 06/21/19 09:57) Other venlafaxine [From Effexor] Adverse Reaction (Verified 06/21/19 09:57) Other Medications to take at Discharge Lansoprazole 15 mg PO DAILY PRN 06/21/19 Lisinopril [Zestril] 10 mg PO DAILY 06/21/19 Apixaban [Eliquis] 5 mg PO BID #180 tab 06/23/19 Pantoprazole Sodium [Protonix] 40 mg PO DAILY #30 tab 06/23/19 The following prescriptions were given: Apixaban [Eliquis] 5 mg PO BID #180 tab Transmission Status: Pending to [facility] #30 Pantoprazole Sodium [Protonix] 40 mg PO DAILY #30 tab Transmission Status: Pending to [facility] Primary Care Physician: Sanjuana Cheung MD [Primary Care Provider] - Please follow up with your Primary Care Physician in: in 5-7 days Test Results: Test results from this visit will be discussed in further detail at your follow- up appointment, if applicable. Please Follow Up With: Diony More DO When: in 2-3 weeks Proposed Discharge Date: 06/23/19
--- NOTE | 2019-06-23 09:43 | PCM.DC.SUM ---
Discharge Date and Diagnosis - Problem List Patient Problems: Active and Suspected Problems Pulmonary emboli (Acute) Date of Admission: 06/21/19 Date of Discharge: 06/23/19 - Primary Discharge Diagnosis Active and Suspected Problems Pulmonary emboli (Acute) - Secondary Discharge Diagnosis Chronic Problems GERD (gastroesophageal reflux disease) (Chronic) Stage III chronic kidney disease (Chronic) Hypertension (Chronic) Hospital Course and Treatment Imaging Results: Clinical Impression(s) from Imaging Studies Chest CTA 06/21/19 11:10 IMPRESSION: 1. Bilateral pulmonary emboli as described above involving the main renal arteries with saddle component. 2. Mild hazy groundglass opacities in the lower lungs which may reflect mild pulmonary edema.. Electronically Signed: Benito Delgado MD at 12:00 EST Tel , Service support , ADDENDUM: 06/21/19 1209 IMPRESSION: 1. Bilateral pulmonary emboli as described above involving the main renal arteries with saddle component. 2. Mild hazy groundglass opacities in the lower lungs which may reflect mild pulmonary edema.. N.B. : The above information has been verbally conveyed by Benito Delgado MD to Dr. Mccracken; [phone], on 06/21/2019 12:02:51 (ET). Electronically Signed: Benito Delgado MD at 12:00 EST Tel , Service support , ADDENDUM: 06/21/19 1216 Summary of Care Provided: Patient is a 68-year-old lady who presented to the emergency department with shortness of breath imaging studies obtained on admission demonstrated bilateral pulmonary embolism/saddle embolism involving the main pulmonary arteries admitted to the intensive care unit started on heparin drip 1. Acute bilateral pulmonary embolism/saddle pulmonary embolism involving both main pulmonary arteries ~ unprovoked. Patient was started on heparin on admission. She is up-to-date with her cancer screening. With patient being unprovoked she would need to be on the coagulation indefinitely regardless of the results of the hypercoagulable state study 2. Elevated troponin ~secondary to non-STEMI type II as a result of massive PE 2D echo ordered for subsequent evaluation 2D echo demonstrated ejection fraction of 65% and RVSP of 54 mmHg 3. Hypertension ~ blood pressure controlled, home medications continued with dose adjustment as needed 4. GERD ~patient is on PPI 5. Acute renal insufficiency ~improved with rehydration Patient Problems: Active and Suspected Problems Pulmonary emboli (Acute) Objective: GENERAL: cooperative HEENT: Atraumatic; EYES; Anicteric, Normal Conjunctiva NECK; supple, normal thyroid, RESPIRATORY: Diminished to auscultation CARDIOVASCULAR: Regular S1 S2, GI: soft, normoactive bowel sounds, NEURO: Awake; no lateralizing signs. SKIN: No Rash PSYCH; Flat affect - Physical Exam Vitals/I&O's: Vital Signs Temp Pulse Resp BP Pulse Ox 98.3 F 70 16 128/71 H 100 06/23/19 07:45 06/23/19 07:45 06/23/19 07:45 06/23/19 07:45 06/23/19 07:45 Oxygen Delivery Method Room Air Weight: 94.9 kg Body Mass Index (BMI) 33.0 Intake and Output for Last 24 Hours 06/21/19 06/22/19 06/23/19 23:59 23:59 23:59 Intake Total 330.94 / 430.94 2162.14 / 2162.14 480 / 480 Output Total 400 / 400 Balance 330.94 / 430.94 1762.14 / 1762.14 480 / 480 Current Medications Acetaminophen (Tylenol) 650 mg PO Q6H PRN PRN PRN Reason: Pain Score 1-3/Temp > 100.7 F Apixaban (Eliquis) 10 mg PO BID [facility] Last Admin: 06/23/19 07:43 Dose: 10 mg Documented by: Atorvastatin Calcium (Lipitor) 40 mg PO QHS [facility] Last Admin: 06/22/19 21:00 Dose: 40 mg Documented by: Heparin Sodium (Porcine) (Heparin Na) 0 unit IV UD PRN; Protocol Hydralazine HCl (Apresoline Iv) 10 mg IV Q8H PRN PRN PRN Reason: for SBP>160 Lisinopril (Zestril) 10 mg PO DAILY [facility] Last Admin: 06/23/19 07:43 Dose: 10 mg Documented by: Metoprolol Tartrate (Lopressor (Beta Garrett)) 25 mg PO BID [facility] Last Admin: 06/23/19 07:43 Dose: 25 mg Documented by: Ondansetron HCl (Zofran) 4 mg IV Q8H PRN PRN PRN Reason: NAUSEA/VOMITING Pantoprazole Sodium (Protonix) 40 mg PO DAILY [facility] Last Admin: 06/23/19 07:43 Dose: 40 mg Documented by: Sodium Chloride () 10 - 40 ml IV UD PRN PRN Reason: SALINE FLUSH Last Admin: 06/21/19 15:19 Dose: 10 ml Documented by: Discharge Diet: No Restrictions Discharge Activity: Return to Normal Activity Call your doctor if you observe: Shortness of breath, Fainting spells, Chest pain Home Medications: Medications to take at Discharge Lansoprazole 15 mg PO DAILY PRN 06/21/19 Lisinopril [Zestril] 10 mg PO DAILY 06/21/19 Apixaban [Eliquis] 5 mg PO BID #180 tab 06/23/19 Pantoprazole Sodium [Protonix] 40 mg PO DAILY #30 tab 06/23/19 Following Prescrptions Were Given to Patient: Apixaban [Eliquis] 5 mg PO BID #180 tab Transmission Status: Pending to [facility] #30 Pantoprazole Sodium [Protonix] 40 mg PO DAILY #30 tab Transmission Status: Pending to [facility] #30 Primary Care Physician: Sanjuana Cheung MD [Primary Care Provider] - Please follow up with your Primary Care Physician in: in 5-7 days Please Follow Up With: Diony More DO When: in 2-3 weeks Disposition: Home Minutes spent on discharge:: 32 Patient Condition:: Stable Medical Necessity - Tobacco Use Smoking Status: Never smoker Meaningful Use Info Meaningful Use Diagnoses (Choose all that apply): VTE - VTE Anticoag overlap given w/in hospital stay or rx'd at dc?: No Pt receive overlap for 5 days?: No Reason overlap not ordered, prescribed, or given for 5 days: Treatment Not Indicated Code Visit Inpatient E&M: 06626 Disch Hosp
--- NOTE | 2019-06-23 10:06 | PHA.DC.MC ---
Pharmacy Service has performed discharge medication reconciliation and counseling for this patient. 1. APIXABAN 10MG PO BID X 7 DAYS THEN 5MG PO BID The patient's discharge medication list was reviewed for discrepancies and discrepancies were resolved. 1. Patient prescribed pantoprazole this admission, already on lansoprazole at home. Dr. Gaye neff D/C pantoprazole. Home Medications Lansoprazole 15 mg PO DAILY PRN 06/21/19 Lisinopril [Zestril] 10 mg PO DAILY 06/21/19 Apixaban [Eliquis] 5 mg PO BID #180 tab 06/23/19 The patient was counseled on the following discharge medications and changes in medications for homegoing were reviewed. The Reason for Use, instructions for use, and potential side effects were reviewed for all new medications. The patient's questions regarding all of their medications were answered. The patient was able to verbally demonstrate an understanding of their discharge medications.
--- NOTE | 2019-06-23 10:10 | CASEMGMT ---
Addendum entered by Elinor Ray 06/23/19 11:10: Call back to [facility] and per tech, pt's co-pay for 90 days of Eliquis is $191, which is about $63/month. Pt updated at this time and provided with 30 day free trial card at this time, voices understanding of all and states 'I will make it work, if the med works for me.' Pt states no further questions/concerns/needs at this time. Mckenna GARBER aware that pt ready for discharge, voices understanding. Opal GARBER CM Original Note: This RN CM spoke with tech at [facility] in regards to coverage/co-pay for Eliquis at this time and they state that they have not fully received script yet and to call back in 30minutes. Per amb orders, script was received at [facility] at 0941 this am. Mckenna GARBER updated, voice understanding. This RN YAMILEX will attempt again around 1040. Opal GARBER CM
[2019-06-26 00:10] LABS: Protein C Antigen 99 % (60-150); Protein C, Functional 119 % (73-180)
[2019-06-26 11:43] LABS: Anti-Cardiolipin Ab, IgG, Qn < 9 GPL U/mL (0-14); Anti-Cardiolipin Ab, IgM, Qn < 9 MPL U/mL (0-12); Antithrombin 3 Function 114 % (75-135); Protein S, Free 90 % (57-157); Protein S, Funtional 106 % (63-140); Protein S, Total 107 % (60-150)
== END 2019-06-23 11:20 | disposition home or self-care (01) | DRG 176 ==
LOC: ED 12:16 → ICU 12:49 → PCU 06-22 14:23
PROVIDERS: Internal Medicine Critical Care Medicine; Admitting Provider Hospitalist; Emergency Provider Emergency Medicine; Family Provider Internal Medicine; PCP Internal Medicine; Referring Provider Hospitalist; Visit Provider Internal Medicine
DX: I26.92 Saddle embolus of pulmonary artery without acute cor pulmonale (principal); N18.3 Chronic kidney disease, stage 3 (moderate); K21.9 Gastro-esophageal reflux disease without esophagitis; I12.9 Hypertensive chronic kidney disease with stage 1 through stage 4 chronic kidney disease, or unspecified chronic kidney disease
CPT/HCPCS: 71275; 80048; 81241; 84484; 85025; 85300; 85302; 85303; 85305; 85306; 85379; 85610; 85730; 86147; 93005; 93306; 93970; 97802; 99285; J7030; Q9957; A4216

== ENCOUNTER → 2019-10-01 10:28 | Outpatient (CLI) | payer MEDICARE, SELFPAY ==
[2019-07-31 14:08] VITALS: BMI 32.5
--- NOTE | 2019-10-01 10:32 | ECHOD_ITS ---
Reason For Study: Hx of Pulm emblism Procedure This was a 2D Doppler, Color Flow transthoracic echocardiogram. Exam performed in department. Left Ventricle Normal LV size. Left ventricular systolic function is normal. The estimated ejection fraction is 60 %. No regional wall motion abnormalities noted. Right Ventricle Normal RV size. Normal systolic function. Atria Normal left atrium. Normal right atrium. Mitral Valve There is mild mitral annular calcification. Tricuspid Valve Normal tricuspid valve. Mild (1+) tricuspid valve insufficiency. Pulmonary artery systolic pressure is 30 mmHg. Aortic Valve Normal aortic valve. Trisinus/trileaflet aortic valve. Pulmonic Valve Normal pulmonic valve. Great Vessels Normal aortic root. The pulmonary artery is normal size. Normal inferior vena cava. Pericardium/Pleural No pericardial effusion. MMode/2D Measurements & Calculations LVIDd: 3.8 cm IVSd: 0.90 cm Ao root diam: 3.2 cm LVIDs: 2.1 cm LVPWd: 1.0 cm RVDd: 3.2 cm FS: 44.5 % LAV(MOD-bp): 42.2 ml LA A4 area: 18.2 cm2 LA dimension(2D): 4.1 cm LAV(MOD-bp) Indexed: 20.4 ml/m2 LAV(MOD-sp2): 31.0 ml LAV(MOD-sp4): 49.6 ml RA A4 area: 15.4 cm2 Doppler Measurements & Calculations MV E max ruddy: 120.4 cm/sec Lat Peak E' Ruddy: 11.8 cm/sec Med Peak E' Ruddy: 8.5 cm/sec MV A max ruddy: 102.0 cm/sec E/E' lat: 10.2 E/E' med: 14.2 MV E/A: 1.2 Ao V2 max: 131.9 cm/sec LV V1 max: 105.9 cm/sec PA V2 max: 87.0 cm/sec Ao max P.0 mmHg LV V1 max P.5 mmHg TR max ruddy: 254.2 cm/sec TR max P.0 mmHg Interpretation Summary Normal LV size. Left ventricular systolic function is normal. The estimated ejection fraction is 60 %. Mild (1+) tricuspid valve insufficiency. Pulmonary artery systolic pressure is 30 mmHg. Compared to the previous the pulmonary pressures have improved significantly Ordering Physician: Zachary Connelly Referring Physician: Sanjuana Cheung Performed By: Adrienne Villalba RDCS
== END ==
PROVIDERS: Family Provider Internal Medicine; PCP Internal Medicine; Referring Provider Internal Medicine Cardiovascular Disease; Visit Provider Internal Medicine Cardiovascular Disease
DX: R94.31 Abnormal electrocardiogram [ECG] [EKG] (principal)
CPT/HCPCS: 93306